=== PATIENT | female | born 1975 | race African-American/Black ===

== ENCOUNTER 2023-07-20 09:11 | Outpatient (CLI) | payer BC | END 2023-07-20 09:12 | disposition home or self-care (01) | LOC: CSHULT 09:11 | PROVIDERS: ATTEND Student in an Organized Health Care Education/Training Program | DX: N92.6 Irregular menstruation, unspecified (principal); R35.0 Frequency of micturition; R14.0 Abdominal distension (gaseous) | CPT/HCPCS: 76856 ==

== ENCOUNTER 2024-02-28 07:35 | Outpatient (CLI) | payer BC | END 2024-02-28 07:36 | disposition home or self-care (01) | LOC: CSHULT 07:35 | PROVIDERS: ATTEND Student in an Organized Health Care Education/Training Program | DX: R74.8 Abnormal levels of other serum enzymes (principal); K76.0 Fatty (change of) liver, not elsewhere classified | CPT/HCPCS: 76705 ==